=== PATIENT | male | born 1990 | race Caucasian/White ===

== ENCOUNTER 2019-09-23 08:55 | Emergency (ER) | payer SELFPAY ==
[~2019-09-23] VITALS: Ht 175 cm; Wt 94.2 kg
--- NOTE | 2019-09-23 10:06 | ED EENT ---
History of Present Illness General Chief Complaint: Nasal Problems Stated Complaint: SINUS INF Nursing Triage Note: pt presents to ed with complaints of l sided facial pain, and pressure that is increased when bending forward or lifting. pt reports cold/congestion symptoms x 3 weeks. Source: patient Exam Limitations: no limitations (NARESH YUSUF MED STUDENT) History of Present Illness Date Seen by Provider: Sep 23, 2019 Time Seen by Provider: 09:41 Initial Comments Pt endorses 3 weeks of undulating left sinus pain/pressure, productive cough, congestion and headache. Pt has tried dayquil and OTC antitussives with some improvement of symptoms. Also complains of runny nose and post-nasal drip but his throat is not sore today. Timing/Duration: intermittent Severity: moderate Location: eye (L), nose, throat, facial, other (endorses pressure over left maxillary, frontal sinus ) Prearrival Treatment: over the counter meds Modifying Factors: Improves With Coughing Associated Symptoms: cough, facial pain/swelling (pain, no swelling ), nasal congestion/drainage, sore throat (within three weeks but not currently ) (NARESH YUSUF MED STUDENT) Allergies and Home Medications Allergies Coded Allergies: Penicillins (Verified Allergy, Unknown, 09/23/19) Sulfa (Sulfonamide Antibiotics) (Verified Allergy, Unknown, 09/23/19) Home Medications No Active Prescriptions or Reported Meds Patient Home Medication List Home Medication List Reviewed: Yes (NARESH YUSUF MED STUDENT) Review of Systems Review of Systems Constitutional: chills, fever Eyes: Denies Decreased Acuity, Denies Pain Ears: Denies Pain, Denies Bloody Discharge, Denies Clear Discharge, Denies Purulent Discharge Nose: see HPI, congestion; denies epistaxis; clear discharge, purulent discharge Mouth: denies pain, denies swelling Throat: pain, hoarse Respiratory: cough, dyspnea on exertion, short of breath Cardiovascular: chest pain (pleuritic, intermittent cp ); No palpitations Gastrointestinal: No abdominal pain, No constipation, No diarrhea, No dysphagia Musculoskeletal: No back pain, No joint pain Skin: No lesions, No lumps, No rash (NARESH YUSUF MED STUDENT) Past Csimpao-Hddeda-Fqqbih Hx Patient Social History Alcohol Use: Denies Use Recreational Drug Use: Yes Smoking Status: Current Someday Smoker Type Used: Cigarettes, Electronic/Vapor Recent Foreign Travel: No Contact w/Someone Who Travel: No Recent Infectious Disease Expo: No Recent Hopitalizations: No Physical Abuse: No Sexual Abuse: No Mistreated: No Fear: No (NARESH [employer] STUDENT) Seasonal Allergies Seasonal Allergies: Yes (NARESH Y[employer] STUDENT) Past Medical History Tonsillectomy Respiratory: No Cardiac: No Neurological: No Genitourinary: No Gastrointestinal: No Musculoskeletal: No Endocrine: No HEENT: No Cancer: No Psychosocial: No Integumentary: No Blood Disorders: No Adverse Reaction/Blood Tranf: No (NARESH YUSUF,[employer] STUDENT) Family Medical History Diabetes (mother) (NARESH [employer] STUDENT) Physical Exam Vital Signs Vital Signs - First Documented 09/23/19 09:24 Temp 37.4 Pulse 88 Resp 16 B/P (MAP) 127/74 (91) Pulse Ox 95 (JACQUE MARIE MD) Height, Weight, BMI Height: '" Weight: lbs. oz. kg; 30.00 BMI Method: General Appearance: WD/WN, no apparent distress Eyes: bilateral eye normal inspection, bilateral eye PERRL, bilateral eye EOMI Ears: right ear TM normal; left ear TM dull, left ear TM red Nose: discharge, sinus tenderness, other (erythematous septum ) Mouth/Throat: maxillary swelling (mild ), other (possible dental carries, erythematous pharynx ) Neck: supple, tender lateral Cardiovascular: regular rate, rhythm, no edema, no gallop, no murmur Respiratory: chest non-tender, lungs clear, normal breath sounds, no respiratory distress, no accessory muscle use Gastrointestinal: non tender, soft Neurologic/Psychiatric: alert, normal mood/affect, oriented x 3 Skin: normal color, warm/dry (NARESH YUSUF,[employer] STUDENT) Progress/Results/Core Measures Results/Orders Vital Signs/I&O 09/23/19 09:24 Temp 37.4 Pulse 88 Resp 16 B/P (MAP) 127/74 (91) Pulse Ox 95 (JACQUE MARIE MD) Blood Pressure Mean: 91 POS Progress Progress Note : Progress Note Attestation: I have examined the patient and reviewed the student's history and physical. I am in agreement with these findings. We will add Omnicef and oral antihistamine to the regimen. (JACQUE MARIE MD) Departure Impression Primary Impression: URI/sinusitis Disposition: 01 HOME, SELF-CARE Condition: Stable Departure-Patient Inst. Decision time for Depature: 10:37 (JACQUE MARIE MD) Patient Instructions: Cough, Runny Nose, and the Common Cold (DC) Add. Discharge Instructions: All discharge instructions reviewed with patient and/or family. Voiced understanding. Add vigorous hydration plus your antihistamine of choice and the antibiotic as prescribed. Scripts Cefdinir (Cefdinir) 300 Mg Capsule 300 MG PO ttwice a day, #10 CAP Prov: JACQUE MARIE MD 09/23/19 NARESH YUSUF,MED STUDENT Sep 23, 2019 10:05 POSJACQUE MARIE MD Sep 23, 2019 10:39 POS
[2019-09-23] MEDS ORDERED: CEFD300C3 PO (10:40)
[2019-09-23 10:57] VITALS: BP 127/74
== END 2019-09-23 10:57 ==
LOC: ER 08:58
DX: J06.9 Acute upper respiratory infection, unspecified (principal); J32.9 Chronic sinusitis, unspecified; F17.210 Nicotine dependence, cigarettes, uncomplicated; F17.290 Nicotine dependence, other tobacco product, uncomplicated; Z90.89 Acquired absence of other organs; Z88.0 Allergy status to penicillin; Z88.2 Allergy status to sulfonamides
CPT/HCPCS: 99282

== ENCOUNTER 2023-07-09 14:51 | Emergency (ER) | payer SELFPAY ==
[~2023-07-09] VITALS: Ht 177 cm; Wt 101.5 kg
[~2023-07-09 14:51] MED LIST: CEFD300C3 PO
[2023-07-09 15:17] VITALS: BP_SYST 117; BP_SYST 128; BP_DIAS 63; BP_DIAS 74
--- NOTE | 2023-07-09 15:42 | ED General ---
General Chief Complaint: Dizziness/Syncope Stated Complaint: FOGGY | ELEVATED HEART RATE | HX OF ANXIETY Nursing Triage Note: Pt stated had a buzzing sounds, felty dizzy, and that he was going to pass out. Pt said it happened friday x1 day, yesterday x 1, today (last time aroubnd 1400hrs) x 1 day and only last a few seconds. Pt denies any trauma, Pt says has hx of anxiety. Source of Information: Patient Exam Limitations: No Limitations (DEE GONZALEZ) History of Present Illness Date Seen by Provider: Jul 09, 2023 Time Seen by Provider: 15:42 Initial Comments Patient is a 32-year-old male who presents ED for dizziness. Patient states he had an episode last Friday when he was driving. He states he turned quickly to the left felt like his vision was going inward and almost had a near syncopal episode. This lasted for a second. Has had 2 other episodes since last Friday. Typically resolves when he moves his head. He did have a headache a few weeks ago and went to the chiropractor with some improvement. Denies of any focal neural deficits such as unilateral muscle weakness or sensory changes facial droop. He has had some intermittent chest pain after the episode as he feels like he is having a panic attack. He does have a monitor on his phone that he can check his heart rate and states that his HRV was low. Denies any current chest pain, shortness of breath, cough, vomiting, diarrhea, visual changes. No known cardiac history. History of anxiety. Denies any drug use or alcohol use. Patient denies any flulike symptoms. No family history of sudden cardiac . Patient denies ear ringing or hearing loss, ear pain (DEE GONZALEZ) Allergies and Home Medications Allergies Coded Allergies: Penicillins (Verified Allergy, Unknown, 09/23/19) Sulfa (Sulfonamide Antibiotics) (Verified Allergy, Unknown, 09/23/19) Patient Home Medication List Home Medication List Reviewed: Yes (DEE GONZALEZ) Cefdinir (Cefdinir) 300 Mg Capsule, 300 MG PO ttwice a day Prescribed by: JACQUE MARIE on 09/23/19 1040 Review of Systems Review of Systems Constitutional: No chills, No diaphoresis, No malaise, No weakness EENTM: blurred vision; No double vision, No mouth swelling Respiratory: No cough, No dyspnea on exertion Cardiovascular: chest pain; No edema, No palpitations Gastrointestinal: No abdominal pain, No diarrhea, No dysphagia, No nausea, No vomiting Genitourinary: No decreased output, No discharge Musculoskeletal: No back pain, No joint pain Skin: No change in color, No change in hair/nails Psychiatric/Neurological: Anxiety (DEE GONZALEZ) All Other Systems Reviewed Negative Unless Noted: Yes (DEE GONZALEZ) Past Efhyjqt-Vlrnhm-Hadpjq Hx Patient Social History Tobacco Use?: No Use of E-Cig and/or Vaping dev: Yes E-Cig or Vaping type used: Nicotine Substance use?: No Alcohol Use?: Yes Alcohol Frequency: Once in a while Pt feels they are or have been: No (DEE GONZALEZ) Seasonal Allergies Seasonal Allergies: Yes (DEE GONZALEZ) Past Medical History Surgery/Hospitalization HX: ANXIETY, TONSILS Tonsillectomy Respiratory: No Cardiac: No Neurological: No Genitourinary: No Gastrointestinal: No Musculoskeletal: No Endocrine: No HEENT: No Cancer: No Psychosocial: No Integumentary: No Blood Disorders: No Adverse Reaction/Blood Tranf: No (DEE GONZALEZ) Family Medical History Diabetes (DEE GONZALEZ) Physical Exam Vital Signs Vital Signs - First Documented 07/09/23 07/09/23 15:03 15:09 Temp 38.6 Pulse 63 Resp 18 B/P (MAP) 131/71 (91) Pulse Ox 98 (SHARDA DILLARD MD) Vital Signs Capillary Refill : Greater Than 3 Seconds (DEE GONZALEZ) Height, Weight, BMI Height: '" Weight: lbs. oz. kg; 32.00 BMI Method: General Appearance: No Apparent Distress, WD/WN Eyes: Bilateral Eye Normal Inspection, Bilateral Eye PERRL, Bilateral Eye EOMI HEENT: PERRL/EOMI, TMs Normal, Normal ENT Inspection, Pharynx Normal Neck: Full Range of Motion, Normal Inspection, Non Tender, Supple Respiratory: Chest Non Tender, Lungs Clear, Normal Breath Sounds, No Accessory Muscle Use, No Respiratory Distress Cardiovascular: Regular Rate, Rhythm, No Edema, No Gallop, No JVD Gastrointestinal: Normal Bowel Sounds, No Organomegaly, No Pulsatile Mass Genital/Rectal: Normal Genital Exam Back: Normal Inspection, No CVA Tenderness Extremity: Normal Capillary Refill, Normal Inspection, Normal Range of Motion Neurologic/Psychiatric: Alert, Oriented x3, No Motor/Sensory Deficits, Normal Mood/Affect, school childcare attendant II-XII Norm as Tested Skin: Normal Color, Warm/Dry (DEE GONZALEZ) Progress/Results/Core Measures Suspected Sepsis SIRS Temperature: Pulse: 62 Respiratory Rate: 18 Laboratory Tests 07/09/23 15:05: White Blood Count 11.6H Blood Pressure 117 /63 Mean: 81 Laboratory Tests 07/09/23 15:05: Creatinine 0.95, Platelet Count 277, Total Bilirubin 0.5 (DEE GONZALEZ) Results/Orders Lab Results Laboratory Tests Test 07/09/23 15:05 Range/Units White Blood Count 11.6 H 4.3-11.0 10^3/uL Red Blood Count 4.75 4.30-5.52 10^6/uL Hemoglobin 13.7 13.3-17.7 g/dL Hematocrit 42 40-54 % Mean Corpuscular Volume 87 80-99 fL Mean Corpuscular Hemoglobin 29 25-34 pg Mean Corpuscular Hemoglobin Concent 33 32-36 g/dL Red Cell Distribution Width 11.9 10.0-14.5 % Platelet Count 277 130-400 10^3/uL Mean Platelet Volume 10.0 9.0-12.2 fL Immature Granulocyte % (Auto) 0 % Neutrophils (%) (Auto) 77 H 42-75 % Lymphocytes (%) (Auto) 13 12-44 % Monocytes (%) (Auto) 8 0-12 % Eosinophils (%) (Auto) 2 0-10 % Basophils (%) (Auto) 1 0-10 % Neutrophils # (Auto) 8.9 H 1.8-7.8 X 10^3 Lymphocytes # (Auto) 1.5 1.0-4.0 X 10^3 Monocytes # (Auto) 0.9 0.0-1.0 X 10^3 Eosinophils # (Auto) 0.2 0.0-0.3 10^3/uL Basophils # (Auto) 0.1 0.0-0.1 10^3/uL Immature Granulocyte # (Auto) 0.0 0.0-0.1 10^3/uL Sodium Level 138 135-145 MMOL/L Potassium Level 4.1 3.6-5.0 MMOL/L Chloride Level 104 98-107 MMOL/L Carbon Dioxide Level 25 21-32 MMOL/L Anion Gap 9 5-14 MMOL/L Blood Urea Nitrogen 14 7-18 MG/DL Creatinine 0.95 0.60-1.30 MG/DL Estimat Glomerular Filtration Rate 110 BUN/Creatinine Ratio 15 Glucose Level 105 70-105 MG/DL Calcium Level 8.9 8.5-10.1 MG/DL Corrected Calcium 8.6 8.5-10.1 MG/DL Magnesium Level 1.9 1.6-2.4 MG/DL Total Bilirubin 0.5 0.1-1.0 MG/DL Aspartate Amino Transf (AST/SGOT) 22 5-34 U/L Alanine Aminotransferase (ALT/SGPT) 30 0-55 U/L Alkaline Phosphatase 52 40-136 U/L Troponin I < 0.028 <0.028 NG/ML Total Protein 7.2 6.4-8.2 GM/DL Albumin 4.4 3.2-4.5 GM/DL (SHARDA DILLARD MD) Vital Signs/I&O 07/09/23 07/09/23 07/09/23 07/09/23 15:03 15:09 15:17 15:17 Temp 38.6 Pulse 63 62 67 Resp 18 B/P (MAP) 131/71 (91) 117/63 (81) 128/74 (92) Pulse Ox 98 (SHARDA DILLARD MD) Vital Signs/I&O Capillary Refill : Greater Than 3 Seconds (DEE GONZALEZ) Blood Pressure Mean: 81 ECG Comment Sinus bradycardia, 56 bpm, QRS duration 104 MS, QTc 370 MS. (DEE GONZALEZ) Departure Communication (PCP) History of anxiety. Increase stress. Patient states he has had 3 episodes of dizziness lasting a few seconds with positional head movements. Reports having near fainting episodes. He has a monitor on his phone and states his heart rate may have dropped into the 50s or 40s during these episodes. No known cardiac history. He has no focal neural deficits. Denies ear ringing, hearing loss. No recent URI. On arrival vital signs stable. Neuro exam unremarkable. He has no focal neural deficits. General lab work EKG CT scan of the head was obtained. No drug use or alcohol use. Urinating without difficulties. CBC, CMP grossly unremarkable. EKG showed sinus bradycardia without evidence of arr hythmia. There is no rhythm changes during his stay. Remained about 50 to 60 bpm. His blood pressure did drop during orthostatics but he denies feeling dizzy. He has had no vomiting or diarrhea. Clinically does not appear dry. Troponin negative. He did have some chest pain after the episode on Friday as well as a day. That lasted for a few seconds. He is not tachycardic or hypoxic. Low suspicion for ACS. No concerning neurological deficits needing further evaluation at this time. Concerned that patient may be having runs of bradycardia or potential arrhythmia that is resulting of his symptoms. Suggest at this time follow-up outpatient with cardiology. He has remained asymptomatic during his stay. No significant cardiac risk factors. Provided this in the discharge instructions. Would likely benefit with a Holter monitor and even a echo. Clinically does not appear to be BPPV. No evidence of central vertigo. Vital signs remained stable. Will discharge with strict return precautions. Provided follow-up with cardiology. Follow-up your PCP in 2 to 3 days for reevaluation. (DEE GONZALEZ) Impression Primary Impression: Dizziness Disposition: 01 HOME, SELF-CARE Condition: Stable Departure-Patient Inst. Decision time for Depature: 17:28 (DEE GONZALEZ) Referrals: KRISTY SCHULTZ (PCP) Primary Care Physician STEFFANIE KNIGHT MD FACP [facility] RYLAND PUENTES MD Patient Instructions: Near Fainting (DC) Add. Discharge Instructions: Continue monitoring symptoms. Suggest following up with cardiology for further evaluation. If continue worsening symptoms return back to ED. Continue monitoring your stress and anxiety All discharge instructions reviewed with patient and/or family. Voiced understanding. ATTENDING PHYSICIAN NOTE: I was physically present as attending physician in the emergency department during the care of this patient, but I was not directly involved in the decision making or delivery of care for this patient. (SHARDA DILLARD MD) DEE GONZALEZ Jul 09, 2023 15:42 SHARDA DILLARD MD Jul 10, 2023 13:06
--- NOTE | 2023-07-09 16:03 | Diagnostic Imaging Report ---
EXAMINATION: CT head without contrast. TECHNIQUE: Multiple contiguous axial images were obtained through the brain without the use of intravenous contrast. All CT scans use one or more of the following dose optimizing techniques: automated exposure control, MA and/or KvP adjustment based on patient size and exam type or iterative reconstruction. HISTORY: Headache, dizziness, blurred vision. COMPARISON: None available. FINDINGS: The ventricles and sulci are normal. No abnormal attenuation of brain parenchyma is present. No acute intracranial hemorrhage or abnormal extra-axial fluid collection is present. No hyperdense vessel. The calvarium is intact. The mastoid air cells are clear. The visualized paranasal sinuses are clear. The orbits are normal. IMPRESSION: No acute intracranial abnormality. Dictated by: Dictated on workstation # [id number]
[2023-07-09 16:25] LABS: BASOPHILS # (AUTO) 0.1 10^3/uL (0.0-0.1); BASOPHILS % (AUTO) 1 % (0-10); EOSINOPHILS # (AUTO) 0.2 10^3/uL (0.0-0.3); EOSINOPHILS % (AUTO) 2 % (0-10); HEMATOCRIT 42 % (40-54); HEMOGLOBIN 13.7 g/dL (13.3-17.7); LYMPHOCYTES # (AUTO) 1.5 X 10^3 (1.0-4.0); LYMPHOCYTES % (AUTO) 13 % (12-44); MEAN CORPUSCULAR HEMOGLOBIN 29 pg (25-34); MEAN CORPUSCULAR HGB CONC 33 g/dL (32-36); MEAN CORPUSCULAR VOLUME 87 fL (80-99); MONOCYTES # (AUTO) 0.9 X 10^3 (0.0-1.0); MONOCYTES % (AUTO) 8 % (0-12); NEUTROPHILS # (AUTO) 8.9 X 10^3 (1.8-7.8); NEUTROPHILS % (AUTO) 77 % (42-75); PLATELET COUNT 277 10^3/uL (130-400); WHITE BLOOD COUNT 11.6 10^3/uL (4.3-11.0)
[2023-07-09 16:29] LABS: ALBUMIN 4.4 GM/DL (3.2-4.5); CHLORIDE 104 MMOL/L (98-107); POTASSIUM 4.1 MMOL/L (3.6-5.0); SODIUM 138 MMOL/L (135-145)
[2023-07-09 16:30] LABS: CALCIUM 8.9 MG/DL (8.5-10.1)
[2023-07-09 16:32] LABS: GLUCOSE 105 MG/DL (70-105); TOTAL PROTEIN 7.2 GM/DL (6.4-8.2)
[2023-07-09 16:33] LABS: BILIRUBIN,TOTAL 0.5 MG/DL (0.1-1.0); CARBON DIOXIDE 25 MMOL/L (21-32)
[2023-07-09 16:35] LABS: ALKALINE PHOSPHATASE 52 U/L (40-136); CREATININE SERUM 0.95 MG/DL (0.60-1.30); GFR ESTIMATED 110
[2023-07-09 16:37] LABS: BUN/CREATININE RATIO 15
[2023-07-09 16:38] LABS: ALANINE AMINOTRANSFERASE 30 U/L (0-55); MAGNESIUM 1.9 MG/DL (1.6-2.4)
== END 2023-07-09 18:19 | disposition home or self-care (01) ==
LOC: EDUNIT# 14:51 → ER 14:54
DX: R42 Dizziness and giddiness (principal); R00.1 Bradycardia, unspecified; F17.290 Nicotine dependence, other tobacco product, uncomplicated
CPT/HCPCS: 36415; 70450; 80053; 83735; 84484; 85025; 93005

== ENCOUNTER → 2023-08-12 | Outpatient (CLI) | payer OTHER | LOC: CARD 08:39 | PROVIDERS: ATTEND Internal Medicine Cardiovascular Disease | DX: R07.9 Chest pain, unspecified (principal); R00.2 Palpitations | CPT/HCPCS: 93306 ==

== ENCOUNTER → 2023-08-13 | Outpatient (CLI) | payer OTHER ==
[2023-08-13 14:47] VITALS: BP 162/98
--- NOTE | 2023-08-13 16:08 | Cardiology Stress Test Report ---
Stress Test Report Date of Procedure/Referring: Date of Procedure: Aug 13, 2023 PCP Maty Saldana Admitting Physician Admitting Physician: Attending Physician: Ryland Saez MD Baseline Heart Rate: 66 Baseline Blood Pressure: Blood Pressure Systolic: 162 Blood Pressure Diastolic: 98 Baseline EKG: Baseline EKG: NSR Summary/Conclusion: Summary: In summary, the patient started exercising with a baseline heart rate, blood pressure and EKG mentioned above Patient was able to exercise for a total of 12.30 minutes on Adin protocol, METs 12.9 Maximum heart rate 167 Maximum blood pressure 192/97 Stress EKG, Minimal nondiagnostic changes Recovery EKG , Return to baseline Conclusion: Excellent exercise tolerance for 12 minutes and 30 seconds on standard Adin protocol, 12.9 METS achieving 88% of maximal expected heart rate Appropriate heart rate response to exercise with hypertensive response to exercise with peak blood pressure 192/97 return to baseline during recovery Minimal nondiagnostic EKG changes with exercise return to baseline during recovery No arrhythmia was detected during test. RYLAND SAEZ MD Aug 13, 2023 16:08
== END ==
LOC: CARD 13:56
PROVIDERS: ATTEND Internal Medicine Cardiovascular Disease
DX: R07.9 Chest pain, unspecified (principal); R00.2 Palpitations
CPT/HCPCS: 93017